=== PATIENT | female | born 1995 | race Asian ===

== ENCOUNTER 2017-07-15 11:24 | Emergency (ER) | payer OTHER ==
[~2017-07-15] VITALS: Ht 160 cm; Wt 150.1 kg
[2017-07-15 11:40] VITALS: BP 133/60; TEMP 98.6
== END 2017-07-15 12:39 | disposition home or self-care (01) ==
LOC: ED 11:24
PROC: 2W3CX1Z Immobilization of Right Lower Arm using Splint (ICD-10-PCS; principal; 2017-07-15)
DX: G56.01 Carpal tunnel syndrome, right upper limb (principal); G56.21 Lesion of ulnar nerve, right upper limb; E66.01 Morbid (severe) obesity due to excess calories
CPT/HCPCS: 99282

== ENCOUNTER 2017-10-01 09:36 | Emergency (ER) | payer OTHER ==
[~2017-10-01] VITALS: Ht 160 cm; Wt 145.6 kg
[2017-10-01 09:40] VITALS: BP 135/92; TEMP 98.3
== END 2017-10-01 10:16 | disposition home or self-care (01) ==
LOC: ED 09:36
DX: R11.2 Nausea with vomiting, unspecified (principal); R19.7 Diarrhea, unspecified
CPT/HCPCS: 99281